=== PATIENT | male | born 1945 | race Caucasian/White ===

== ENCOUNTER 2024-10-23 09:11 | Day surgery (SDC) | payer MEDICARE, OTHER ==
[~2024-10-23] VITALS: Ht 172.7 cm; Wt 146.4 kg
[2024-10-23] VITALS (8 sets, daily range): BP systolic 114–148; BP diastolic 44–69
[2024-10-23] MEDS ORDERED: ALLO300 PO (09:47)
[2024-10-23] MEDS ORDERED: ASCO500 PO (09:47)
[2024-10-23] MEDS ORDERED: ATOR40TA PO (09:48)
[2024-10-23] MEDS ORDERED: ASPI81CH PO (09:48)
[2024-10-23] MEDS ORDERED: THERA-D2000 UNIT PO (09:49)
[2024-10-23] MEDS ORDERED: CARV3.125 PO (09:49)
[2024-10-23] MEDS ORDERED: Acetaminophen325 M1 PO (09:49)
[2024-10-23] MEDS ORDERED: JARDIANCE25 MG PO (09:50)
[2024-10-23] MEDS ORDERED: COLCHICINE0.6 MG PO (09:50)
[2024-10-23] MEDS ORDERED: GABA300 PO (09:50)
[2024-10-23] MEDS ORDERED: HYDR1TAB94 PO (09:51)
[2024-10-23] MEDS ORDERED: HUMALOG KW100 UNIT/1 SQ (09:52)
[2024-10-23] MEDS ORDERED: TOUJEO MAX300 UNIT/2 (09:52)
[2024-10-23] MEDS ORDERED: LEVOTHYROXINE25 MC9 PO (09:53)
[2024-10-23] MEDS ORDERED: MECL25 PO (09:53)
[2024-10-23] MEDS ORDERED: SEMAGLUTID0.25 MG/0. SC (09:54)
[2024-10-23] MEDS ORDERED: POTCHL20ER PO (09:54)
[2024-10-23] MEDS ORDERED: SPIR25 PO (09:54)
[2024-10-23] MEDS ORDERED: Triamcinolone A15 GM TP (09:55)
[2024-10-23] MEDS ORDERED: [UNRECOGNIZED DRUG - OTHER] PO (09:55)
[2024-10-23] MEDS ORDERED: TAMS.4ER PO (09:55)
[2024-10-23] MEDS ORDERED: XARELTO15 MG PO (10:02)
[2024-10-23] MEDS ORDERED: NS 250 ML IV ONE (10:32)
[2024-10-23] MEDS ORDERED: Nitroglycerin 2 MG/20 ML BTL ONE (10:32)
[2024-10-23] MEDS ORDERED: NS 1,000 ML IV ONE ×2 (10:32→12:00)
[2024-10-23 10:34] LABS: Bun/Creatinine Ratio 43.9 (12.0-20.0); Calcium, Blood 9.6 mg/dL (8.5-10.1); Creatinine, Blood 1.64 mg/dL (0.60-1.20); Potassium, Blood 3.3 mmol/L (3.5-5.5)
[2024-10-23] MEDS ORDERED: Midazolam HCl 1MG / ML 2ML Vial ONE (11:59)
[2024-10-23] MEDS ORDERED: FentaNYL Citrate 50 MCG/ML 2 ML Injection ONE (12:00)
[2024-10-23] MEDS ORDERED: Heparin Sodium 1000 Units/ML 10ML MDV ONE (12:22)
[2024-10-23] MEDS ORDERED: NS 100 ML IV ONE (12:29)
--- NOTE | 2024-10-23 13:56 | NUR ---
RETURNED FROM [employer], ACCESS TO RIGHT FEMORAL INTACT, NO CONCERNS NOTED, REPORT RECEIVED, ROSALIND AT BEDSIDE, VSS. PENDING D/C PER PROTOCOL.
--- NOTE | 2024-10-23 16:02 | NUR ---
SAT PT HOB UP EARLIER AFTER HOUR COMPLETED, PATIENT ATE, HOB ELEVATED AND ASSISTED PATIENT TO GET DRESSED, AMBULATE TO RESTROOM. FAMILY ARRIVED, DISCUSS D/C INSTRUCTIONS WITH FAMILY/PATIENT, MED LIST AND FEM SITE CARE. VERBALIZE UNDERSTANDING, NO CONCERNS, LEFT WITH FAMILY VIA WHEELCHAIR, ENCOURAGED CALL/RETURN WITH ANY CONCERNS, IV REMOVED, LEFT UNIT AT 1600.
== END 2024-10-23 16:00 | disposition home or self-care (01) ==
LOC: MHTC 09:11
PROVIDERS: Radiology Diagnostic Radiology
DX: E11.51 Type 2 diabetes mellitus with diabetic peripheral angiopathy without gangrene (principal); I70.262 Atherosclerosis of native arteries of extremities with gangrene, left leg; I25.10 Atherosclerotic heart disease of native coronary artery without angina pectoris; I48.91 Unspecified atrial fibrillation; J44.9 Chronic obstructive pulmonary disease, unspecified; I50.9 Heart failure, unspecified; I87.2 Venous insufficiency (chronic) (peripheral); E66.01 Morbid (severe) obesity due to excess calories; G47.30 Sleep apnea, unspecified; Z86.73 Personal history of transient ischemic attack (TIA), and cerebral infarction without residual deficits; Z79.82 Long term (current) use of aspirin; Z79.4 Long term (current) use of insulin; Z79.01 Long term (current) use of anticoagulants; Z79.899 Other long term (current) drug therapy; Z88.5 Allergy status to narcotic agent; Z88.8 Allergy status to other drugs, medicaments and biological substances
CPT/HCPCS: 75625; 75716; 75774; 76937; 80048; 93005; 93010; 99152; 99153; C1725; C1760; C1769; C1887; C1894; C2623; C9764; C9772; J1644; J2250; J3010; J7030; J7050; Q9967